=== PATIENT | female | born 1955 | race Caucasian/White ===

== ENCOUNTER 2017-11-27 11:03 | Inpatient (IN) | payer MEDICARE, OTHER ==
[~2017-11-27] VITALS: Ht 157.5 cm; Wt 66.8 kg
[2017-11-27] MEDS ORDERED: IV NS 0.9% 1,000 ML BAG IV ONE ×2 (11:30→14:00)
[2017-11-27 11:54] LABS: BASOPHILS # (AUTO) 0.1 /CMM (0.0-0.2); BASOPHILS % (AUTO) 0.6 % (0.0-2.0); EOSINOPHILS # (AUTO) 0.1 /CMM (0.0-0.7); EOSINOPHILS % (AUTO) 1.1 % (0.0-6.0); HEMATOCRIT 30 % (33-45); HEMOGLOBIN 10.9 g/dL (11.5-14.8); LYMPHOCYTES # (AUTO) 1.3 /CMM (0.8-4.8); MEAN CORPUSCULAR HEMOGLOBIN 34 PG (26.0-33.0); MEAN CORPUSCULAR HGB CONC 36 g/dl (31.0-36.0); MEAN CORPUSCULAR VOLUME 95 fL (82-100); MONOCYTES # (AUTO) 0.4 /CMM (0.1-1.30); MONOCYTES % (AUTO) 4.6 % (2.0-12.0); NEUTROPHILS # (AUTO) 6.5 /CMM (1.8-8.9); NEUTROPHILS % (AUTO) 78.7 % (43.0-81.0); PLATELET COUNT (AUTO) 211 /CMM (150-450); RDW COEFFICIENT OF VARIATION 11.2 (11.5-15.0); RED BLOOD CELL COUNT(AUTO) 3.21 MIL/uL (4.0-5.2); WHITE BLOOD COUNT (AUTO) 8.4 K/uL (4.3-11.0)
[2017-11-27 11:59] LABS: CALCIUM, SERUM 8.9 mg/dL (8.5-10.1); CARBON DIOXIDE 25 mmol/L (21-32); CHLORIDE 104 mmol/L (98-107); CREATININE 1.3 mg/dL (0.6-1.3); GLUCOSE 186 mg/dL (74-106); POTASSIUM 3.7 mmol/L (3.5-5.1); SODIUM SERUM 137 mmol/L (136-145); UREA NITROGEN, BLOOD 21 mg/dL (7-18)
[2017-11-27 12:01] LABS: INR 0.96 (0.85-1.15)
[2017-11-27 12:05] LABS: ALANINE AMINOTRANSFERASE 11 U/L (12-78); ALBUMIN 3.3 g/dL (3.4-5.0); ALKALINE PHOSPHATASE 84 U/L (46-116); ASPARTATE AMINOTRANSFERASE 13 U/L (15-37); BILIRUBIN,DIRECT 0.1 mg/dL (0.0-0.2); BILIRUBIN,TOTAL 0.3 mg/dL (0.2-1.0); TOTAL PROTEIN, SERUM 7.1 g/dL (6.4-8.2)
[2017-11-27 12:07] LABS: TROPONIN I < 0.017 ng/mL (0.00-0.056)
--- NOTE | 2017-11-27 12:42 | NUR ---
VERBAL ORDER DR DAY IV NS @1 L X1
--- NOTE | 2017-11-27 13:02 | NUR ---
CALLED NURSING SUP. FOR TELE BED
--- NOTE | 2017-11-27 13:07 | NUR ---
[facility] PAGED, FINANCIAL ACCOUNTING ANALYST
--- NOTE | 2017-11-27 13:34 | NUR ---
TELE 317-2
[2017-11-27] MEDS ORDERED: IV NS 0.9% 1,000 ML IV PRN (13:38)
[2017-11-27] MEDS ORDERED: RISP3TAB PO (13:40)
[2017-11-27] MEDS ORDERED: HYDR12.55 PO (13:40)
[2017-11-27] MEDS ORDERED: RISP2TAB PO (13:40)
[2017-11-27] MEDS ORDERED: CITA20TA11 PO (13:40)
[2017-11-27] MEDS ORDERED: ASPI-1152 PO (13:40)
[2017-11-27] MEDS ORDERED: QUET25TA PO (13:40)
[2017-11-27] MEDS ORDERED: TOLT2CAP PO (13:40)
[2017-11-27] MEDS ORDERED: METO25TA20 PO (13:40)
[2017-11-27] MEDS ORDERED: ZOLP5TAB8 PO (13:40)
[2017-11-27] MEDS ORDERED: DIGO125T PO (13:40)
[2017-11-27] MEDS ORDERED: DILT30TA14 PO (13:40)
[2017-11-27] MEDS ORDERED: BENZ1TAB7 PO (13:40)
[2017-11-27] MEDS ORDERED: BENA20TA2 PO (13:40)
[2017-11-27] MEDS ORDERED: GEMF600T3 PO (13:40)
[2017-11-27] MEDS ORDERED: ALEN70TA45 PO (13:40)
[2017-11-27] MEDS ORDERED: ESOM20CA PO (13:40)
[2017-11-27] MEDS ORDERED: FERR325T23 PO (13:40)
[2017-11-27] MEDS ORDERED: ONDANSETRON HCL/PF 4 MG/2 ML VIAL IVP PRN (14:00)
[2017-11-27] MEDS ORDERED: HYDROCODONE/APAP 5/325MG 1 EACH TABLET PO PRN (14:00)
[2017-11-27] MEDS ORDERED: ACETAMINOPHEN 325 MG TABLET PO PRN (14:00)
[2017-11-27] MEDS ORDERED: Z GUARD REMEDY 2 OZ OINT TP PRN (14:00)
[2017-11-27] MEDS ORDERED: MAGNESIUM HYDROXIDE 30 ML UDC PO PRN (14:00)
[2017-11-27] MEDS ORDERED: MAG HYDROX/AL HYDROX/SIMETH 30 ML UDC PO PRN (14:00)
[2017-11-27] MEDS ORDERED: ZOLPIDEM TARTRATE 5 MG TABLET PO PRN ×2 (14:00→22:00)
--- NOTE | 2017-11-27 14:03 | NUR ---
REPORT GIVEN TO LUCIANA ORTIZ FOR JACQUE
--- NOTE | 2017-11-27 14:30 | NUR ---
ADMISSION NOTES PATIENT 62 Y/OLD FEMALE ADMITTED FROM ER ON DX 0F HYPOTENSION ON TELE. TELE MONITOR ON, SR-71, PATIENT A/O X4, NO ACUTE RESPIRATORY DISTRESS, V/S TAKEN BP- 97/57, P-73, R-18, O2-98 ROOM AIR, T-97.8. ENCOURAGED PATIENT EXPRESS FEELINGS AND CONCERNS. PATIENT REFUSED PAIN AT THIS TIME, NO N/V. PATIENT AMBULATORY USING BATHROOM. SKIN ASSESSMENT DONE, SKIN INTACT. NEEDS ATTENDED AND ANTICIPATED, IV ACCESS ON RIGHT UA AREA INTACT. BELONGING CHECKED. DR COLES AWARE OF NEW PATIENT AND MEDICATION. CALL LIGHT WITHIN TO REACH, CONTINUED MONITORING.
[2017-11-27 14:33] VITALS: BP 97/57
--- NOTE | 2017-11-27 18:30 | NUR ---
RN NOTES PATIENT IN THE BED EATING, INFUSING NS AT 120 ML/HR INTACT, PATIENT STABLE AT THIS TIME. CALL LIGHT WITHIN TO REACH. ENDORSED ONCOMING NURSE FOR JACQUE.
--- NOTE | 2017-11-27 19:40 | NUR ---
SALON SHAMPOO ASSISTANT INITIAL NOTES PT IS IN BED AWAKE AND ALERT. NO SIGNS OF SOB OR DISTRESS, BREATHING EVENLY AND UNLABORED ON RA. IV ACCESS IS INTACT AND PATENT WITH NS INFUSING. DENIES PAIN AND DIZZINESS AT THIS TIME. BED IS IN LOW AND LOCKED POSITION, CALL LIGHT WITHIN REACH. WILL CONTINUE TO MONITOR PT
[2017-11-27 20:00] VITALS: BP 96/55
[2017-11-27] MEDS ORDERED: ALENDRONATE 70 MG TABLET PO SCH (20:30)
[2017-11-27] MEDS: FERROUS SULFATE (325 MG) 325 MG/TAB TABLET PO SCH (21:58)
[2017-11-27] MEDS ORDERED: QUETIAPINE FUMARATE 25 MG TABLET PO SCH (22:00)
[2017-11-27] MEDS ORDERED: risperiDONE-M 0.5 MG TAB.RAPDIS PO SCH (22:00)
[2017-11-28] VITALS: BP 94/64
[2017-11-28 04:00] VITALS: BP 110/65
--- NOTE | 2017-11-28 06:39 | NUR ---
MS RN CLOSING NOTES PT IS IN BED RESTING. NO SIGNS OF SOB OR DISTRESS, BREATHING EVENLY AND UNLABORED ON RA. DENIES PAIN AT THIS TIME. IV ACCESS IS INTACT AND PATENT. ALL NEEDS WERE ANTICIPATED AND MET. BED IS IN LOW AND LOCKED POSITION, CALL LIGHT WITHIN REACH. WILL ENDORSE TO DAYSHIFT
--- NOTE | 2017-11-28 07:12 | NUR ---
MS RN OPENING NOTES RECEIVED PT FROM NIGHTSHIFT NURSE IN STABLE CONDITION. PT IS A/O X3. NO SOB OR SIGNS OF DISTRESS NOTED. BREATHING IS EVEN AND UNLABORED. SHE DENIES ANY DIZZINESS AT THIS TIME. IV ON RIGHT AC NOTED TO BE PATENT AND INTACT. PT TOLERATING NS INFUSION WELL. NO REDNESS OR SIGNS OF INFILTRATION NOTED. CURRENT BP NOTED TO BE 116/60. BED IN LOW LOCKED POSITION, SIDE RAILS UP X2, CALL LIGHT WITHIN REACH. WILL CONTINUE TO MONITOR.
[2017-11-28 07:18] LABS: BASOPHILS % (AUTO) 0.6 % (0.0-2.0); EOSINOPHILS # (AUTO) 0.1 /CMM (0.0-0.7); EOSINOPHILS % (AUTO) 2.2 % (0.0-6.0); HEMATOCRIT 28 % (33-45); HEMOGLOBIN 9.8 g/dL (11.5-14.8); LYMPHOCYTES # (AUTO) 2.2 /CMM (0.8-4.8); LYMPHOCYTES % (AUTO) 37.9 % (20.0-44.0); MEAN CORPUSCULAR HEMOGLOBIN 34 PG (26.0-33.0); MEAN CORPUSCULAR HGB CONC 35 g/dl (31.0-36.0); MEAN CORPUSCULAR VOLUME 96 fL (82-100); MONOCYTES # (AUTO) 0.5 /CMM (0.1-1.30); MONOCYTES % (AUTO) 8.5 % (2.0-12.0); NEUTROPHILS % (AUTO) 50.8 % (43.0-81.0); PLATELET COUNT (AUTO) 172 /CMM (150-450); RED BLOOD CELL COUNT(AUTO) 2.91 MIL/uL (4.0-5.2); WHITE BLOOD COUNT (AUTO) 5.9 K/uL (4.3-11.0)
[2017-11-28] MEDS ORDERED: PANTOPRAZOLE 40 MG TABLET.DR PO SCH (07:30)
[2017-11-28 07:33] LABS: ALBUMIN 2.9 g/dL (3.4-5.0); BILIRUBIN,TOTAL 0.3 mg/dL (0.2-1.0); CALCIUM, SERUM 8.1 mg/dL (8.5-10.1); CREATININE 0.7 mg/dL (0.6-1.3); MAGNESIUM 1.9 mg/dL (1.8-2.4); PHOSPHORUS 3.5 mg/dL (2.5-4.9); POTASSIUM 3.4 mmol/L (3.5-5.1); TOTAL PROTEIN, SERUM 6.2 g/dL (6.4-8.2)
[2017-11-28 08:00] VITALS: BP 116/60
[2017-11-28] MEDS: FERROUS SULFATE (325 MG) 325 MG/TAB TABLET PO SCH (08:57)
[2017-11-28 09:00] VITALS: BP 116/60
[2017-11-28] MEDS ORDERED: GEMFIBROZIL 600 MG TABLET PO SCH (09:00)
[2017-11-28] MEDS ORDERED: BENZTROPINE MESYLATE (1 MG) 1 MG TABLET PO SCH (09:00)
[2017-11-28] MEDS ORDERED: TOLTERODINE 2 MG CAP.SR PO SCH (09:00)
[2017-11-28] MEDS ORDERED: METOPROLOL TARTRATE 25 MG TABLET PO SCH (09:00)
[2017-11-28] MEDS ORDERED: ASPIRIN EC 81 MG TABLET.DR PO SCH (09:00)
[2017-11-28] MEDS ORDERED: CITALOPRAM HYDROBROMIDE 20 MG TABLET PO SCH (09:00)
[2017-11-28] MEDS ORDERED: risperiDONE-M 0.5 MG TAB.RAPDIS PO SCH (09:00)
--- NOTE | 2017-11-28 09:31 | NUR ---
MS RN NOTES OB STOOL SAMPLE COLLECTED. LAB CONTACTED FOR CABLE SUPERVISOR. PER DR COLES, "PT MAY GO BACK TO HER FACILITY IF SAMPLE IS NEGATIVE"
[2017-11-28] MEDS ORDERED: POTASSIUM CHLORIDE 20 MEQ TAB.PRT.SR PO SCH (13:00)
[2017-11-28] MEDS ORDERED: DIGOXIN 0.125 MG TABLET PO SCH (13:00)
[2017-11-28 13:15] LABS: OCCULT BLOOD STOOL NEGATIVE (NEGATIVE)
--- NOTE | 2017-11-28 13:16 | NUR ---
MS RN NOTES OB STOOL CAME BACK NEGATIVE. WILL PROCEED WITH D/C TO PT'S BOARD AND CARE. FACILITY ALREADY INFORMED OF D/C BY CASE MANAGEMENT
--- NOTE | 2017-11-28 15:29 | NUR ---
MS DAMPER MAKER NOTES PT WAS DISCHARGED FROM FACILITY IN STABLE CONDITION. ALL NEEDS MET DURING SHIFT AND ORDERS CARRIED OUT ACCORDINGLY. DISCHARGE INSTRUCTIONS DISCUSSED IN FULL DETAIL WITH PT UTILIZING EXIT CARE MATERIALS. IV WAS SUCCESSFULLY REMOVED WITH NO ADVERSE EVENTS. CHUCKIE THE DIRECTOR FROM THE PT'S BOARD AND CARE WAS NOTIFIED OF DISCHARGE AND IS ANTICIPATING PT'S ARRIVAL. PT LEFT WITH ALL BELONGINGS.SHE WAS SAFELY TRANSFERRED FROM [facility] [place] TO [facility] AND LEFT VIA AMBULANCE TRANSPORT.
== END 2017-11-28 15:31 | disposition home or self-care (01) | DRG 377 ==
LOC: ER 11:04 → TELE 13:45 → MED 21:19
PROVIDERS: ADMIT Internal Medicine; ATTEND Internal Medicine
DX: K92.2 Gastrointestinal hemorrhage, unspecified (principal); G93.41 Metabolic encephalopathy; F03.90 Unspecified dementia, unspecified severity, without behavioral disturbance, psychotic disturbance, mood disturbance, and anxiety; I95.9 Hypotension, unspecified; I25.10 Atherosclerotic heart disease of native coronary artery without angina pectoris; I10 Essential (primary) hypertension; E78.5 Hyperlipidemia, unspecified; Z79.82 Long term (current) use of aspirin; Z79.899 Other long term (current) drug therapy
CPT/HCPCS: 36415; 71045-TC; 80048-TC; 80053-TC; 80061-TC; 80076-TC; 80162-TC; 82272-TC; 83735-TC; 84100-TC; 84484-TC; 85025-TC; 85730-TC; 87081-TC; A4606; J7030; Z7610